=== PATIENT | male | born 1950 | race Caucasian/White ===

== ENCOUNTER 2023-03-05 12:51 | Outpatient (CLI) | payer MEDICARE, BC ==
[~2023-03-05 12:51] MED LIST: Iopamidol 300 61% 100 ML VIAL FS ONE
== END 2023-03-05 12:52 | disposition home or self-care (01) ==
LOC: CSHCT 12:51
PROVIDERS: ATTEND Nurse Practitioner Family
DX: R22.2 Localized swelling, mass and lump, trunk (principal); N28.9 Disorder of kidney and ureter, unspecified
CPT/HCPCS: 71260; 82565

== ENCOUNTER 2025-10-25 07:40 | Outpatient (CLI) | payer MEDICARE | END 2025-10-25 07:41 | disposition home or self-care (01) | LOC: CSHULT 07:40 | PROVIDERS: ATTEND Family Medicine | DX: R74.01 Elevation of levels of liver transaminase levels (principal); K80.20 Calculus of gallbladder without cholecystitis without obstruction | CPT/HCPCS: 76700; 93976 ==